=== PATIENT | male | born 1985 | race Two or more races ===

== ENCOUNTER 2020-01-24 15:18 | Emergency (ER) | payer OTHER ==
[~2020-01-24] VITALS: Ht 177.8 cm; Wt 103.8 kg
--- NOTE | 2020-01-24 15:25 | NUR ---
ATE LUNCH AT APPROXIMATELY 1100, HAD 3 MIMOMA'S. ABD PAIN/N/V/D STARTED ABOUT 2 HRS AFTER LUNCH. NO MEDS TAKEN FOR SX. ZOFRAN GIVEN PER EMS
[2020-01-24] MEDS ORDERED: TUMS (15:27)
[2020-01-24 15:57] LABS: MEAN CORPUSCULAR HEMOGLOBIN 30.7 pg (27.5-34.5); MEAN CORPUSCULAR HGB CONC 32.8 g/dL (33.2-36.2); MEAN CORPUSCULAR VOLUME 93.6 fL (81-97); MEAN PLATELET VOLUME 8.3 fL (7.4-10.4); PLATELET COUNT 319 x10^3/uL (130-400); RED BLOOD COUNT 5.81 x10^6/uL (4.38-5.82); RED CELL DISTRIBUTION WIDTH 13.2 % (9.4-14.8)
[2020-01-24] MEDS ORDERED: HYDROmorphone 1 MG/ML, 1ML INJ ONE (15:58)
[2020-01-24] MEDS ORDERED: ONDANSETRON 2MG/ML, 2ML ONE (15:58)
[2020-01-24] MEDS ORDERED: SODIUM CHLORIDE FLUSH 10ML SYR IVF ONE (16:00)
[2020-01-24] MEDS ORDERED: HYDROmorphone 2 MG/ML, 1ML IVPush PRN (16:00)
[2020-01-24] MEDS ORDERED: ONDANSETRON 2MG/ML, 2ML IVPush ONE (16:00)
[2020-01-24] MEDS ORDERED: SODIUM CHLORIDE 0.9% 1,000ML IVBOLUS ONE ×2 (16:00→18:00)
--- NOTE | 2020-01-24 16:06 | NUR ---
RETURNED FROM RADIOLOGY
[2020-01-24 16:07] LABS: ALANINE AMINOTRANSFERASE 46 U/L (12-78); ALBUMIN 4.6 g/dL (3.4-5.0); ANION GAP 12 mmol/L (5-15); CALCIUM 9.8 mg/dL (8.5-10.1); CHLORIDE 111 mmol/L (98-107)
[2020-01-24 16:09] LABS: ALKALINE PHOSPHATASE 66 U/L (45-117); BILIRUBIN,TOTAL 0.3 mg/dL (0.2-1.0)
--- NOTE | 2020-01-24 16:11 | NUR ---
NS BOLUS HUNG, ZOFRAN AND DILAUDID GIVEN PER EMAR; IV SITE PATENT.
[2020-01-24 16:23] LABS: MD YES
[2020-01-24 16:26] LABS: BAND#(MANUAL) 2.69 x10^3/uL; BANDS%(MANUAL) 14 % (0-7); LYMPH#(MANUAL) 1.15 x10^3/uL (1-3.4); LYMPHS% (MANUAL) 6 % (22-44); MONOS#(MANUAL) 1.34 x10^3/uL (0.3-2.7); MONOS% (MANUAL) 7 % (2-9); SEG#(MANUAL) 14.02 x10^3/uL (1.8-6.8); SEGS% (MANUAL) 73 % (42-75)
[2020-01-24 16:27] LABS: <PLATELET ESTIMATE> ADEQUATE; <PLT MORPHOLOGY> NORMAL PLT MORPH; <RBC MORPHOLOGY> NORMAL
--- NOTE | 2020-01-24 16:40 | NUR ---
PT REPORTS BEING PAIN-FREE CURRENTLY. NS BOLUS INFUSING. SPOUSE IN ROOM
--- NOTE | 2020-01-24 16:53 | NUR ---
PT REPORT TO HIRAL JORDAN RN. PT CARE TRANSFERRED.
[2020-01-24] MEDS ORDERED: OMNIPAQUE 350 MG/ML, 100ML BOTTLE ONE (17:39)
--- NOTE | 2020-01-24 17:50 | NUR ---
PT TO BE DC'D. CONSULTED DR RUCKER RE: PENDING 3100ML NS ORDER. VO: CANCEL 3100ML NS.
[2020-01-24 17:53] VITALS: BP 133/82
--- NOTE | 2020-01-24 18:14 | NUR ---
PO CHALLENGE INITIATED W/ WATER. PT ABLE TO CONSUME 360ML W/OUT N/V
== END 2020-01-24 18:47 | disposition home or self-care (01) ==
LOC: ED 16:32
DX: K52.9 Noninfective gastroenteritis and colitis, unspecified (principal); D72.829 Elevated white blood cell count, unspecified; R11.2 Nausea with vomiting, unspecified; R10.13 Epigastric pain
CPT/HCPCS: 36415; 74021; 74177; 80053; 83605; 83690; 85025; 96361; 96374; 96375; 99285; J1170; J2405; J7030; Q9967